=== PATIENT | male | born 1955 | race Caucasian/White ===

== ENCOUNTER 2017-05-26 09:40 | Inpatient (IN) | payer MEDICARE, MEDICAID ==
[2017-05-22 13:08] LABS: BASOPHILS % (AUTO) 0.5 % (0-1); EOSINOPHILS # (AUTO) 0.2 X10'3 (0-0.9); EOSINOPHILS % (AUTO) 1.9 % (0-6); HEMATOCRIT 37.7 % (42.0-52.0); HEMOGLOBIN 13.1 g/dl (14.0-17.9); LYMPHOCYTES # (AUTO) 2.9 X10'3 (1.1-4.8); LYMPHOCYTES % (AUTO) 35.1 % (21-51); MEAN CORPUSCULAR HEMOGLOBIN 30.9 PG (27.0-31.0); MEAN CORPUSCULAR HGB CONC 34.7 % (33.0-36.5); MEAN CORPUSCULAR VOLUME 89.1 FL (78-98); MEAN PLATELET VOLUME 7.8 FL (7.4-10.4); MONOCYTES # (AUTO) 0.7 X10'3 (0-0.9); NEUTROPHILS # (AUTO) 4.5 X10'3 (1.8-7.7); NEUTROPHILS % (AUTO) 54.5 % (42-75); PLATELET COUNT 311 X10'3 (140-440); RED BLOOD COUNT 4.23 X10'6 (4.70-6.10); WHITE BLOOD COUNT 8.2 X10'3 (4.5-11.0)
[2017-05-22 13:19] LABS: PARTIAL THROMBOPLASTIN TIME 27 SECONDS (22-32); PROTHROMBIN TIME 10.2 SECONDS (9.0-12.0)
[2017-05-22 13:31] LABS: ALANINE AMINOTRANSFERASE 19 U/L (12-78); ALBUMIN 3.5 G/DL (3.4-5.0); ALBUMIN/GLOBULIN RATIO 0.9 (1.1-1.5); ALKALINE PHOSPHATASE 109 IU/L (46-116); ANION GAP 7 (8-16); ASPARTATE AMINO TRANSFERASE 15 U/L (10-37); BILIRUBIN,TOTAL 0.4 MG/DL (0.1-1.0); BLOOD UREA NITROGEN 11 MG/DL (7-18); CHLORIDE 106 MMOL/L (99-107); GLUCOSE 93 MG/DL (70-104); POTASSIUM 4.3 MMOL/L (3.5-5.1); SODIUM 141 MMOL/L (135-145); TOTAL CARBON DIOXIDE 27.6 MMOL/L (24-32); TOTAL PROTEIN 7.4 G/DL (6.4-8.2); eGFR 68 ML/MIN
[~2017-05-26] VITALS: Ht 177.8 cm; Wt 69.8 kg
[2017-05-26] VITALS (18 sets, daily range): BP systolic 136–192; BP diastolic 64–78
[~2017-05-26 09:40] MED LIST: LIDOcaine 1% (10mg/ml) 5ml syringe ONE; albumin (human) 25% 100 ML IV solution IV ONE; calcium chloride 100 MG/1 ML inj IV ONE; heparin 10,000 units/1 ML INJ ONE; magnesium sulf 1 GM/2 ML ONE; methylPREDNISolone sod. succ. 500mg inj ONE; phenylephrine 10mg/ml inj IV ONE; sodium bicarbonate (8.4%) 1 mEq/ml syringe ONE
[2017-05-26] MEDS ORDERED: LORazepam 0.5 MG tablet PO PRN (10:10)
[2017-05-26] MEDS ORDERED: normal saline 1000ml 1,000 ML IV SCH (10:10)
[2017-05-26] MEDS ORDERED: nitroGLYCERIN 0.4mg SUBLingual tab SL PRN (10:10)
[2017-05-26] MEDS ORDERED: diphenhydrAMINE 25mg capsule PO PRN (10:10)
[2017-05-26] MEDS ORDERED: ASPI-611 PO (10:28)
[2017-05-26] MEDS ORDERED: ATOR80TA PO (10:29)
[2017-05-26] MEDS ORDERED: LISI10TA4 PO (10:29)
[2017-05-26] MEDS ORDERED: FA/M1TAB PO (10:30)
[2017-05-26] MEDS ORDERED: FAMO20TA8 PO (10:31)
[2017-05-26] MEDS ORDERED: BUDE10.2 INH (10:33)
[2017-05-26] MEDS ORDERED: ALBU8.5H8 IH (10:34)
[2017-05-26] MEDS ORDERED: fentaNYL/PF 50MCG/1 ML 2ML syringe ONE (11:52)
[2017-05-26] MEDS ORDERED: iohexol 350 MG/ML 50ML vial IV ONE (11:52)
[2017-05-26] MEDS ORDERED: midazolam 2 mg/2 ml injection ONE (11:52)
[2017-05-26] MEDS ORDERED: iohexol 350MG/ML 100ml bottle IV ONE (11:52)
[2017-05-26] MEDS ORDERED: LIDOcaine 1%/PF (10mg/ml) 5ml vial ONE (11:54)
[2017-05-26] MEDS ORDERED: heparin 1,000unit/ml 10ml vial 10 ML ONE (12:41)
[2017-05-26] MEDS ORDERED: OXAZEpam 15mg capsule PO PRN (13:55)
[2017-05-26] MEDS ORDERED: ondansetron/PF 4mg/2ml inj IV PRN (13:55)
[2017-05-26] MEDS ORDERED: proCHLORperazine 10 MG/2 ml inj IV PRN (13:55)
[2017-05-26] MEDS ORDERED: HYDROcodone/acetaminophen 10/325mg tab PO PRN ×3 (14:00→14:35)
[2017-05-26] MEDS ORDERED: HYDROcodone/acetaminophen 5mg/325mg tablet PO PRN (14:00)
[2017-05-26] MEDS ORDERED: albuterol 2.5 MG/3 ML nebule NEB PRN (14:05)
[2017-05-26] MEDS: sodium chloride 0.45% 1,000 ML IV SCH (14:16)
[2017-05-26] MEDS ORDERED: heparin 10,000 units/1 ML INJ IV PRN (14:20)
[2017-05-26] MEDS ORDERED: heparin 10,000 units/1 ML INJ IV ONE (14:20)
[2017-05-26] MEDS ORDERED: nitroGLYCERIN-Tridil 50MG/D5W 250 ML IV SCH (14:35)
[2017-05-26] MEDS ORDERED: magnesium hydroxide 30ml (MOM) UD suspension PO PRN (14:35)
[2017-05-26] MEDS ORDERED: acetaminophen 325mg tablet PO PRN (14:35)
[2017-05-26] MEDS ORDERED: morphine 10mg/ml inj. IV PRN (14:35)
[2017-05-26] MEDS ORDERED: cyclobenzaprine 10mg tablet PO PRN (14:35)
[2017-05-26] MEDS ORDERED: morphine 2 MG/ML inj. syringe IV PRN (14:35)
[2017-05-26] MEDS ORDERED: morphine 5 MG/ML injection IV PRN ×2 (14:37)
[2017-05-26 14:46] LABS: CHOL/HDL RATIO 2.4 (0.00-4.99); CHOLESTEROL 114 MG/DL (0-200); HDL CHOLESTEROL 47 MG/DL (35-60); LDL CHOLESTEROL 60 MG/DL (50-100); TRIGLYCERIDES 20 MG/DL (20-135); TROPONIN I < 0.04 NG/ML (0.0-0.05)
[2017-05-26] MEDS ORDERED: cefazolin/dext.iso 2gm/50ml 50 ML IV ONE (16:50)
[2017-05-26] MEDS ORDERED: dextrose 50%-water 50ml dispensing syringe IV PRN (16:50)
[2017-05-26] MEDS ORDERED: insulin regular, human inj. 100 UNITS in normal saline 100ml IV soln 100 ML IV SCH ×2 (16:50)
[2017-05-26] MEDS ORDERED: vancomycin/NS 1 GM ADD-VANTAGE 250 ML IV ONE (16:50)
[2017-05-26] MEDS ORDERED: MESSAGE TO NURSING PO ONE ×4 (16:50)
[2017-05-26 16:55] LABS: ABG BASE EXCESS -0.1 mmol/L (-2.0-3.0); ABG HCO3 23.9 mmol/L (22.0-26.0); ABG OXYGEN SATURATION 95.7 % (95-98); ABG PH (T) 7.437 (7.350-7.450); ABG PO2 (T) 76.2 mmHg (83-108); FCOHb 0.3 % (0.5-1.5); FO2Hb 95.4 % (94-100); PATIENT TEMPERATURE 36.4; TOTAL HEMOGLOBIN 13.1 G/dl (14.0-18.0)
[2017-05-26] MEDS ORDERED: insulin Lispro (HumaLOG) vial - multi-dose SQ SCH (18:00)
[2017-05-26 18:02] LABS: HEMATOCRIT 35.7 % (42.0-52.0); HEMOGLOBIN 12.3 g/dl (14.0-17.9); MEAN CORPUSCULAR HEMOGLOBIN 30.7 PG (27.0-31.0); MEAN CORPUSCULAR HGB CONC 34.4 % (33.0-36.5); MEAN CORPUSCULAR VOLUME 89.2 FL (78-98); MEAN PLATELET VOLUME 7.8 FL (7.4-10.4); PLATELET COUNT 284 X10'3 (140-440); RED BLOOD COUNT 4.01 X10'6 (4.70-6.10); RED CELL DISTRIBUTION WIDTH 13.8 % (11.5-14.5); WHITE BLOOD COUNT 7.6 X10'3 (4.5-11.0)
[2017-05-26 18:12] LABS: ALBUMIN 3.2 G/DL (3.4-5.0); ANION GAP 5 (8-16); BLOOD UREA NITROGEN 11 MG/DL (7-18); CALCIUM 8.5 MG/DL (8.5-10.1); CHLORIDE 106 MMOL/L (99-107); GLUCOSE 92 MG/DL (70-104); POTASSIUM 4.2 MMOL/L (3.5-5.1); SODIUM 138 MMOL/L (135-145); TOTAL CARBON DIOXIDE 27.1 MMOL/L (24-32); eGFR 68 ML/MIN
[2017-05-26 18:14] LABS: HEMOGLOBIN A1C 5.9 % (4.5-6.2)
[2017-05-26 19:45] LABS: TROPONIN I < 0.04 NG/ML (0.0-0.05)
[2017-05-26 19:53] LABS: INR 1.1 INR; PROTHROMBIN TIME 11.1 SECONDS (9.0-12.0)
[2017-05-26] MEDS ORDERED: ringers solution, lacted 1,000 ML IV ONE (19:58)
[2017-05-26] MEDS ORDERED: atorvastatin 20mg tablet PO SCH (21:00)
[2017-05-26] MEDS: famotidine 20mg tablet PO SCH (21:08)
[2017-05-26] MEDS: docusate sod 100mg capsule PO SCH (21:08)
[2017-05-26 21:59] LABS: CLARITY,URINE CLEAR (Clear); COLOR,URINE YELLOW (Yellow); GLUCOSE, URINE NEGATIVE (Neg); KETONES,URINE NEGATIVE (Neg); LEUKOCYTE ESTERASE ,URINE NEGATIVE (Neg); NITRITES, URINE NEGATIVE (Neg); OCCULT BLOOD,URINE NEGATIVE (Neg); PH,URINE 6.5 (4.8-8.0); PROTEIN,URINE NEGATIVE (Neg); UROBILINOGEN,URINE 0.2 E.U/dL (0.2-1.0)
[2017-05-26 22:03] LABS: UA COLLECTION TYPE NON-SPECIFIED
[2017-05-27] VITALS (26 sets, daily range): BP systolic 90–163; BP diastolic 36–69
[2017-05-27] MEDS: sodium chloride 0.45% 1,000 ML IV SCH (03:15)
[2017-05-27 04:04] LABS: BASOPHILS % (AUTO) 0.4 % (0-1); EOSINOPHILS # (AUTO) 0.2 X10'3 (0-0.9); EOSINOPHILS % (AUTO) 2.2 % (0-6); HEMATOCRIT 35.5 % (42.0-52.0); HEMOGLOBIN 12.2 g/dl (14.0-17.9); LYMPHOCYTES # (AUTO) 2.8 X10'3 (1.1-4.8); LYMPHOCYTES % (AUTO) 25.8 % (21-51); MEAN CORPUSCULAR HEMOGLOBIN 30.8 PG (27.0-31.0); MEAN CORPUSCULAR HGB CONC 34.3 % (33.0-36.5); MEAN CORPUSCULAR VOLUME 89.9 FL (78-98); MEAN PLATELET VOLUME 8.2 FL (7.4-10.4); MONOCYTES # (AUTO) 0.6 X10'3 (0-0.9); MONOCYTES % (AUTO) 5.5 % (2-12); NEUTROPHILS # (AUTO) 7.2 X10'3 (1.8-7.7); NEUTROPHILS % (AUTO) 66.1 % (42-75); PLATELET COUNT 275 X10'3 (140-440); RED BLOOD COUNT 3.96 X10'6 (4.70-6.10); RED CELL DISTRIBUTION WIDTH 13.8 % (11.5-14.5); WHITE BLOOD COUNT 10.9 X10'3 (4.5-11.0)
[2017-05-27 05:00] LABS: ALANINE AMINOTRANSFERASE 20 U/L (12-78); ALBUMIN 3.1 G/DL (3.4-5.0); ALBUMIN/GLOBULIN RATIO 0.9 (1.1-1.5); ALKALINE PHOSPHATASE 103 IU/L (46-116); ANION GAP 8 (8-16); ASPARTATE AMINO TRANSFERASE 17 U/L (10-37); BILIRUBIN,TOTAL 0.4 MG/DL (0.1-1.0); BLOOD UREA NITROGEN 15 MG/DL (7-18); BUN/CREATININE RATIO 13.6 (5.4-32.0); CALCIUM 8.8 MG/DL (8.5-10.1); CHLORIDE 106 MMOL/L (99-107); GLUCOSE 108 MG/DL (70-104); POTASSIUM 4.1 MMOL/L (3.5-5.1); SODIUM 139 MMOL/L (135-145); TOTAL CARBON DIOXIDE 25.5 MMOL/L (24-32); TOTAL PROTEIN 6.5 G/DL (6.4-8.2); eGFR 68 ML/MIN
[2017-05-27] MEDS ORDERED: vancomycin/NS 1 GM ADD-VANTAGE 250 ML IV ONE (05:00)
[2017-05-27] MEDS ORDERED: cefazolin/dext.iso 2gm/50ml 50 ML IV ONE (05:00)
[2017-05-27] MEDS ORDERED: LORazepam 2 mg/ml vial IV ONE (06:00)
[2017-05-27] MEDS ORDERED: famotidine 20mg tablet PO ONE (06:00)
[2017-05-27] MEDS ORDERED: papaverine 30 mg/ml 2ml inj. ONE (06:00)
[2017-05-27] MEDS ORDERED: heparin 10,000 units/1 ML INJ ONE (06:00)
[2017-05-27] MEDS ORDERED: potassium Cl 2 mEq/ml inj IV ONE (06:00)
[2017-05-27] MEDS ORDERED: LORazepam 2 mg/ml vial ONE (06:10)
[2017-05-27] MEDS: mupirocin 2% ointment 22GM NS SCH ×3 (06:51→20:04)
[2017-05-27] MEDS: insulin regular, human inj. 100 UNITS in normal saline 100ml IV soln 100 ML IV SCH ×20 (06:53→23:09)
[2017-05-27] MEDS: multivitamins, therapeutics tablet PO SCH (08:00)
[2017-05-27] MEDS ORDERED: nitroGLYCERIN in D5W 50mg/250ml (Tridil) infusion IV ONE (08:00)
[2017-05-27] MEDS: fluticasone/vilanterol 200mcg/25mcg inhaler IH SCH (08:00)
[2017-05-27] MEDS ORDERED: isoflurane 100ml inhalation liquid IH ONE (08:00)
[2017-05-27] MEDS ORDERED: protamine sulf. 10mg/ml inj. IV ONE (08:00)
[2017-05-27] MEDS: docusate sod 100mg capsule PO SCH ×2 (08:00→20:05)
[2017-05-27] MEDS ORDERED: lisinopril 10 MG tablet PO SCH (08:00)
[2017-05-27] MEDS: famotidine 20mg tablet PO SCH (08:00)
[2017-05-27] MEDS ORDERED: SUFENTANIL CITRATE 50 MCG/ML 2ml ampule IV ONE (08:19)
[2017-05-27] MEDS ORDERED: aspirin 81mg tab.chew PO SCH (08:30)
[2017-05-27] MEDS ORDERED: rocuronium 10mg/ml inj IV ONE ×2 (08:39→08:40)
[2017-05-27] MEDS ORDERED: LIDOcaine 2% (20mg/ml) 5ml vial ONE (08:40)
[2017-05-27] MEDS ORDERED: propofol inj 20 ML IV ONE (08:40)
[2017-05-27 08:56] LABS: ABG BASE EXCESS -0.5 mmol/L (-2.0-3.0); ABG HCO3 22.6 mmol/L (22.0-26.0); ABG OXYGEN SATURATION 99.4 % (95-98); ABG PCO2 32.1 mmHg (35.0-45.0); ABG PH 7.465 (7.350-7.450); ABG PO2 538.2 mmHg (60.0-100.0); CL (ABG) 108 mmol/L (99-107); FCOHb 0.3 % (0.5-1.5); FMetHb 0.5 % (0.3-1.12); FO2Hb 98.6 % (94-100); GLUCOSE (ABG) 94 mg/dl (70-105); IONIZED CA (ABG) 1.15 mmol/L (1.03-1.32); K (ABG) 4.2 mmol/L (3.3-5.1); NA (ABG) 137 mmol/L (135-145); TOTAL HEMOGLOBIN 11.8 G/dl (14.0-18.0)
[2017-05-27] MEDS ORDERED: insulin Lispro (HumaLOG) vial - multi-dose SQ SCH (09:00)
[2017-05-27] MEDS ORDERED: esmolol inj. 10 ML IV ONE (09:07)
[2017-05-27] MEDS ORDERED: heparin 10,000 units/1 ML INJ IJ ONE (09:09)
[2017-05-27] MEDS ORDERED: papaverine 30 mg/ml 2ml inj. IA ONE (09:09)
[2017-05-27] MEDS ORDERED: MESSAGE TO NURSING PO ONE (10:00)
[2017-05-27 10:05] LABS: ABG BASE EXCESS 0.2 mmol/L (-2.0-3.0); ABG HCO3 23.4 mmol/L (22.0-26.0); ABG OXYGEN SATURATION 99.4 % (95-98); ABG PCO2 32.1 mmHg (35.0-45.0); ABG PH 7.481 (7.350-7.450); ABG PO2 437.2 mmHg (60.0-100.0); CL (ABG) 104 mmol/L (99-107); FCOHb 0.3 % (0.5-1.5); FMetHb 0.1 % (0.3-1.12); GLUCOSE (ABG) 117 mg/dl (70-105); IONIZED CA (ABG) 0.97 mmol/L (1.03-1.32); K (ABG) 5.6 mmol/L (3.3-5.1); NA (ABG) 133 mmol/L (135-145); TOTAL HEMOGLOBIN 8.2 G/dl (14.0-18.0)
[2017-05-27 10:25] LABS: ABG PCO2 VENOUS 42.3 mmHg; ABG PO2 VENOUS 45.1 mmHg; CL (ABG) 103 mmol/L (99-107); FCOHb VENOUS 0.4 %; FHHb VENOUS 17.7 %; FMetHb VENOUS 0.2 %; FO2Hb VENOUS 81.7 %; GLUCOSE (ABG) 120 mg/dl (70-105); K (ABG) 5.8 mmol/L (3.3-5.1); NA (ABG) 134 mmol/L (135-145); TOTAL HEMOGLOBIN 8.4 G/dl (14.0-18.0)
[2017-05-27 10:46] LABS: ABG BASE EXCESS 1.6 mmol/L (-2.0-3.0); ABG HCO3 25.5 mmol/L (22.0-26.0); ABG OXYGEN SATURATION 99.6 % (95-98); ABG PCO2 36.5 mmHg (35.0-45.0); ABG PH 7.462 (7.350-7.450); ABG PO2 523.2 mmHg (60.0-100.0); CL (ABG) 107 mmol/L (99-107); FCOHb 0.8 % (0.5-1.5); FMetHb 0.4 % (0.3-1.12); FO2Hb 98.4 % (94-100); GLUCOSE (ABG) 126 mg/dl (70-105); IONIZED CA (ABG) 2.63 mmol/L (1.03-1.32); K (ABG) 5.8 mmol/L (3.3-5.1); NA (ABG) 133 mmol/L (135-145); TOTAL HEMOGLOBIN 7.4 G/dl (14.0-18.0)
[2017-05-27 11:15] LABS: ABG BASE EXCESS 1.3 mmol/L (-2.0-3.0); ABG HCO3 25.7 mmol/L (22.0-26.0); ABG OXYGEN SATURATION 98.4 % (95-98); ABG PCO2 39.5 mmHg (35.0-45.0); ABG PH 7.431 (7.350-7.450); ABG PO2 218.2 mmHg (60.0-100.0); CL (ABG) 105 mmol/L (99-107); FCOHb 0.3 % (0.5-1.5); FMetHb 0.9 % (0.3-1.12); FO2Hb 97.2 % (94-100); GLUCOSE (ABG) 139 mg/dl (70-105); IONIZED CA (ABG) 1.22 mmol/L (1.03-1.32); K (ABG) 5.4 mmol/L (3.3-5.1); NA (ABG) 136 mmol/L (135-145); TOTAL HEMOGLOBIN 8.6 G/dl (14.0-18.0)
[2017-05-27] MEDS ORDERED: morphine 10mg/ml inj. ONE (11:19)
[2017-05-27] MEDS ORDERED: sodium chloride 0.45% 1,000 ML IV SCH (11:38)
[2017-05-27] MEDS ORDERED: DOPamine 400mg/D5W 250ml 250 ML IV PRN (11:38)
[2017-05-27] MEDS ORDERED: nitroGLYCERIN-Tridil 50MG/D5W 250 ML IV PRN (11:38)
[2017-05-27] MEDS ORDERED: magnesium hydroxide 30ml (MOM) UD suspension PO PRN (11:40)
[2017-05-27] MEDS ORDERED: metoclopramide 5 mg/ml inj IV PRN (11:40)
[2017-05-27] MEDS ORDERED: sodium phosphate inj. 15 MMOL in dextrose 5%-water 150 ML IV PRN (11:40)
[2017-05-27] MEDS ORDERED: morphine 5 MG/ML injection IV PRN ×2 (11:40)
[2017-05-27] MEDS ORDERED: acetaminophen 325mg tablet PO PRN (11:40)
[2017-05-27] MEDS ORDERED: dextrose 50%-water 50ml dispensing syringe IV PRN (11:40)
[2017-05-27] MEDS ORDERED: sodium phosphate inj. 30 MMOL in dextrose 5%-water 250 ML IV PRN (11:40)
[2017-05-27] MEDS ORDERED: potassium Cl 20mEq/100mL bag 100 ML IV PRN ×3 (11:40)
[2017-05-27] MEDS ORDERED: magnesium 4gm in 100ml NS 100 ML IV PRN (11:40)
[2017-05-27] MEDS ORDERED: insulin regular, human inj. 100 UNITS in normal saline 100ml IV soln 100 ML IV SCH ×2 (11:40)
[2017-05-27] MEDS ORDERED: Neutra Phos packet PO PRN (11:40)
[2017-05-27] MEDS ORDERED: albumin (Human) 5% 250ml 250 ML IV PRN (11:40)
[2017-05-27] MEDS ORDERED: normal saline 250ml IV soln 250 ML IV PRN (11:40)
[2017-05-27 12:07] LABS: BASOPHILS % (AUTO) 0.1 % (0-1); EOSINOPHILS # (AUTO) 0.3 X10'3 (0-0.9); EOSINOPHILS % (AUTO) 1.5 % (0-6); HEMATOCRIT 27.6 % (42.0-52.0); HEMOGLOBIN 9.8 g/dl (14.0-17.9); LYMPHOCYTES % (AUTO) 10.7 % (21-51); MEAN CORPUSCULAR HGB CONC 35.4 % (33.0-36.5); MEAN CORPUSCULAR VOLUME 87.6 FL (78-98); MEAN PLATELET VOLUME 7.7 FL (7.4-10.4); MONOCYTES # (AUTO) 0.5 X10'3 (0-0.9); MONOCYTES % (AUTO) 2.7 % (2-12); NEUTROPHILS # (AUTO) 16.2 X10'3 (1.8-7.7); PLATELET COUNT 169 X10'3 (140-440); RED BLOOD COUNT 3.15 X10'6 (4.70-6.10); RED CELL DISTRIBUTION WIDTH 13.7 % (11.5-14.5); WHITE BLOOD COUNT 19.1 X10'3 (4.5-11.0)
[2017-05-27 12:11] LABS: ABG BASE EXCESS -0.2 mmol/L (-2.0-3.0); ABG OXYGEN SATURATION 98.4 % (95-98); ABG PCO2 (T) 35.4 mmHg (35.0-48.0); ABG PH (T) 7.444 (7.350-7.450); ABG PO2 (T) 195.8 mmHg (83-108); FCOHb 0.2 % (0.5-1.5); FMetHb 0.3 % (0.3-1.12); FO2Hb 97.9 % (94-100); PATIENT TEMPERATURE 35.6; PEEP 5 cm H2O; RESPIRATORY RATE 12 b/min; TIDAL VOLUME 600 mL; TOTAL HEMOGLOBIN 10.5 G/dl (14.0-18.0)
[2017-05-27 12:18] LABS: INR 1.2 INR; PARTIAL THROMBOPLASTIN TIME 29 SECONDS (22-32); PROTHROMBIN TIME 12.6 SECONDS (9.0-12.0)
[2017-05-27 12:22] LABS: ALANINE AMINOTRANSFERASE 9 U/L (12-78); ALBUMIN 2.9 G/DL (3.4-5.0); ALBUMIN/GLOBULIN RATIO 1.5 (1.1-1.5); ALKALINE PHOSPHATASE 61 IU/L (46-116); ANION GAP 6 (8-16); ASPARTATE AMINO TRANSFERASE 20 U/L (10-37); BILIRUBIN,TOTAL 0.5 MG/DL (0.1-1.0); BLOOD UREA NITROGEN 12 MG/DL (7-18); BUN/CREATININE RATIO 13.3 (5.4-32.0); CALCIUM 8.3 MG/DL (8.5-10.1); CHLORIDE 109 MMOL/L (99-107); GLUCOSE 155 MG/DL (70-104); MAGNESIUM 3.8 MG/DL (1.5-2.4); PHOSPHORUS 1.9 MG/DL (2.3-4.5); SODIUM 141 MMOL/L (135-145); TOTAL CARBON DIOXIDE 25.8 MMOL/L (24-32); TOTAL PROTEIN 4.9 G/DL (6.4-8.2); eGFR 85 ML/MIN
[2017-05-27 12:35] LABS: ACTIVATED CLOTTING TIME 139 SEC (101-148)
[2017-05-27 12:35] LABS: ACT @ 1.70 U 313 SEC (193-297); ACT @ 2.84 U 467 SEC (260-420); BASELINE ACT 142 SEC (101-148); PATIENT WEIGHT 69.0k KG
[2017-05-27] MEDS: niCARDipine/sod cl 20mg/200ml 200 ML IV PRN ×2 (12:45→20:06)
[2017-05-27] MEDS: insulin Lispro (HumaLOG) vial - multi-dose SQ SCH ×2 (13:00→18:00)
[2017-05-27] MEDS: ketorolac tromethamine 15mg/ml inj. IV SCH ×2 (14:09→20:05)
[2017-05-27 15:51] LABS: ABG BASE EXCESS -2.1 mmol/L (-2.0-3.0); ABG HCO3 22.4 mmol/L (22.0-26.0); ABG OXYGEN SATURATION 96.7 % (95-98); ABG PCO2 (T) 36.3 mmHg (35.0-48.0); ABG PH (T) 7.405 (7.350-7.450); ABG PO2 (T) 92.5 mmHg (83-108); FCOHb 0.3 % (0.5-1.5); FMetHb 0.3 % (0.3-1.12); FO2Hb 96.1 % (94-100); MINUTE VOLUME 13 L/min; PATIENT TEMPERATURE 36.3; PEEP 5 cm H2O; RESPIRATORY RATE (OBSERVED) 22 b/min; TOTAL HEMOGLOBIN 11.8 G/dl (14.0-18.0)
[2017-05-27] MEDS: cefazolin 1gm/NS 100mL 100 ML IV SCH (16:13)
[2017-05-27 17:58] LABS: BASOPHILS % (AUTO) 0 % (0-1); EOSINOPHILS # (AUTO) 0.4 X10'3 (0-0.9); EOSINOPHILS % (AUTO) 2.1 % (0-6); HEMATOCRIT 33.2 % (42.0-52.0); HEMOGLOBIN 11.3 g/dl (14.0-17.9); LYMPHOCYTES # (AUTO) 0.9 X10'3 (1.1-4.8); LYMPHOCYTES % (AUTO) 4.7 % (21-51); MEAN CORPUSCULAR HEMOGLOBIN 30.6 PG (27.0-31.0); MEAN CORPUSCULAR HGB CONC 34.1 % (33.0-36.5); MEAN CORPUSCULAR VOLUME 89.6 FL (78-98); MONOCYTES # (AUTO) 0.5 X10'3 (0-0.9); MONOCYTES % (AUTO) 2.8 % (2-12); NEUTROPHILS # (AUTO) 16.4 X10'3 (1.8-7.7); NEUTROPHILS % (AUTO) 90.4 % (42-75); PLATELET COUNT 180 X10'3 (140-440); RED BLOOD COUNT 3.71 X10'6 (4.70-6.10); RED CELL DISTRIBUTION WIDTH 13.6 % (11.5-14.5); WHITE BLOOD COUNT 18.2 X10'3 (4.5-11.0)
[2017-05-27 18:08] LABS: ALBUMIN 3.4 G/DL (3.4-5.0); ANION GAP 7 (8-16); BLOOD UREA NITROGEN 14 MG/DL (7-18); BUN/CREATININE RATIO 12.7 (5.4-32.0); CALCIUM 8.3 MG/DL (8.5-10.1); CHLORIDE 109 MMOL/L (99-107); GLUCOSE 146 MG/DL (70-104); SODIUM 142 MMOL/L (135-145); TOTAL CARBON DIOXIDE 25.8 MMOL/L (24-32); eGFR 68 ML/MIN
[2017-05-27 18:12] LABS: POTASSIUM 4.6 MMOL/L (3.5-5.1)
[2017-05-27 18:58] LABS: MAGNESIUM 2.7 MG/DL (1.5-2.4); PHOSPHORUS 1.5 MG/DL (2.3-4.5)
[2017-05-27] MEDS: vancomycin/NS 1 GM ADD-VANTAGE 250 ML IV SCH (20:04)
[2017-05-28] VITALS (24 sets, daily range): BP systolic 118–156; BP diastolic 50–74
[2017-05-28] MEDS: cefazolin 1gm/NS 100mL 100 ML IV SCH ×3 (00:09→16:09)
[2017-05-28] MEDS: insulin regular, human inj. 100 UNITS in normal saline 100ml IV soln 100 ML IV SCH ×4 (00:18→03:14)
[2017-05-28] MEDS: HYDROcodone/acetaminophen 10/325mg tab PO PRN ×4 (00:30→22:02)
[2017-05-28] MEDS: ketorolac tromethamine 15mg/ml inj. IV SCH ×2 (01:41→08:00)
[2017-05-28 03:51] LABS: INR 1.1 INR; PARTIAL THROMBOPLASTIN TIME 29 SECONDS (22-32)
[2017-05-28 03:54] LABS: ALANINE AMINOTRANSFERASE 15 U/L (12-78); ALBUMIN/GLOBULIN RATIO 1.3 (1.1-1.5); ALKALINE PHOSPHATASE 62 IU/L (46-116); ANION GAP 8 (8-16); ASPARTATE AMINO TRANSFERASE 76 U/L (10-37); BILIRUBIN,TOTAL 0.4 MG/DL (0.1-1.0); BLOOD UREA NITROGEN 17 MG/DL (7-18); CALCIUM 8.1 MG/DL (8.5-10.1); CHLORIDE 108 MMOL/L (99-107); GLUCOSE 136 MG/DL (70-104); MAGNESIUM 2.2 MG/DL (1.5-2.4); PHOSPHORUS 4.1 MG/DL (2.3-4.5); POTASSIUM 4.5 MMOL/L (3.5-5.1); SODIUM 141 MMOL/L (135-145); TOTAL PROTEIN 5.4 G/DL (6.4-8.2); eGFR 75 ML/MIN
[2017-05-28 04:09] LABS: BASOPHILS % (AUTO) 0 % (0-1); EOSINOPHILS # (AUTO) 0.3 X10'3 (0-0.9); EOSINOPHILS % (AUTO) 1.4 % (0-6); HEMATOCRIT 28.4 % (42.0-52.0); HEMOGLOBIN 9.6 g/dl (14.0-17.9); LYMPHOCYTES # (AUTO) 1.3 X10'3 (1.1-4.8); LYMPHOCYTES % (AUTO) 5.7 % (21-51); MEAN CORPUSCULAR HEMOGLOBIN 30.7 PG (27.0-31.0); MEAN CORPUSCULAR HGB CONC 33.7 % (33.0-36.5); MEAN CORPUSCULAR VOLUME 91.1 FL (78-98); MEAN PLATELET VOLUME 8.8 FL (7.4-10.4); MONOCYTES # (AUTO) 0.9 X10'3 (0-0.9); MONOCYTES % (AUTO) 4.1 % (2-12); NEUTROPHILS # (AUTO) 20.5 X10'3 (1.8-7.7); NEUTROPHILS % (AUTO) 88.8 % (42-75); PLATELET COUNT 152 X10'3 (140-440); RED BLOOD COUNT 3.12 X10'6 (4.70-6.10); RED CELL DISTRIBUTION WIDTH 14.1 % (11.5-14.5); WHITE BLOOD COUNT 23.1 X10'3 (4.5-11.0)
[2017-05-28] MEDS: magnesium 2GM in 50ml NS 50 ML IV PRN (04:48)
[2017-05-28] MEDS: ondansetron/PF 4mg/2ml inj IV PRN (07:09)
[2017-05-28] MEDS: fluticasone/vilanterol 200mcg/25mcg inhaler IH SCH (07:58)
[2017-05-28] MEDS: insulin Lispro (HumaLOG) vial - multi-dose SQ SCH ×2 (09:00→13:00)
[2017-05-28] MEDS ORDERED: albuterol 2.5 MG/3 ML nebule NEB PRN (09:00)
[2017-05-28] MEDS: vancomycin/NS 1 GM ADD-VANTAGE 250 ML IV SCH ×2 (09:30→19:43)
[2017-05-28] MEDS: mupirocin 2% ointment 22GM NS SCH ×2 (09:31→19:43)
[2017-05-28] MEDS: aspirin 325mg tablet, delayed-release (Ecotrin) PO SCH (09:31)
[2017-05-28] MEDS: atorvastatin 10mg tablet PO SCH (09:31)
[2017-05-28] MEDS: metoprolol tartrate 12.5mg (1/2 tablet) PO SCH ×2 (09:31→19:44)
[2017-05-28] MEDS: multivitamins, therapeutics tablet PO SCH (09:31)
[2017-05-28] MEDS: pantoprazole 40mg Tablet.DR PO SCH (09:31)
[2017-05-28] MEDS: docusate sod 100mg capsule PO SCH ×2 (09:31→19:44)
[2017-05-28] MEDS: albuterol 2.5 MG/3 ML nebule NEB SCH ×4 (11:37→22:13)
[2017-05-28] MEDS ORDERED: dextrose ORAL solution 15 GM/59 ML bottle PO PRN ×2 (13:50)
[2017-05-28] MEDS ORDERED: insulin Lispro (HumaLOG) vial - multi-dose SQ SCH (13:50)
[2017-05-28] MEDS ORDERED: dextrose 50%-water 50ml dispensing syringe IV PRN ×2 (13:50)
[2017-05-28] MEDS ORDERED: insulin glargine (Lantus) pen - multi-dose SQ SCH (21:00)
[2017-05-29] VITALS (18 sets, daily range): BP systolic 110–136; BP diastolic 56–74
[2017-05-29] MEDS: cefazolin 1gm/NS 100mL 100 ML IV SCH (00:23)
[2017-05-29] MEDS: albuterol 2.5 MG/3 ML nebule NEB SCH ×6 (02:35→23:20)
[2017-05-29 03:36] LABS: BASOPHILS % (AUTO) 0 % (0-1); EOSINOPHILS # (AUTO) 0.3 X10'3 (0-0.9); EOSINOPHILS % (AUTO) 1.3 % (0-6); HEMATOCRIT 26.9 % (42.0-52.0); HEMOGLOBIN 9.1 g/dl (14.0-17.9); LYMPHOCYTES # (AUTO) 1.3 X10'3 (1.1-4.8); LYMPHOCYTES % (AUTO) 4.9 % (21-51); MEAN CORPUSCULAR HEMOGLOBIN 30.6 PG (27.0-31.0); MEAN CORPUSCULAR HGB CONC 33.7 % (33.0-36.5); MEAN CORPUSCULAR VOLUME 90.8 FL (78-98); MEAN PLATELET VOLUME 8.7 FL (7.4-10.4); MONOCYTES # (AUTO) 1.2 X10'3 (0-0.9); MONOCYTES % (AUTO) 4.4 % (2-12); NEUTROPHILS # (AUTO) 23.2 X10'3 (1.8-7.7); NEUTROPHILS % (AUTO) 89.4 % (42-75); PLATELET COUNT 126 X10'3 (140-440); RED BLOOD COUNT 2.96 X10'6 (4.70-6.10)
[2017-05-29 04:04] LABS: ALBUMIN 2.8 G/DL (3.4-5.0); ANION GAP 6 (8-16); BLOOD UREA NITROGEN 18 MG/DL (7-18); CALCIUM 8.3 MG/DL (8.5-10.1); CHLORIDE 107 MMOL/L (99-107); GLUCOSE 133 MG/DL (70-104); MAGNESIUM 2.3 MG/DL (1.5-2.4); PHOSPHORUS 3.5 MG/DL (2.3-4.5); POTASSIUM 4.9 MMOL/L (3.5-5.1); SODIUM 139 MMOL/L (135-145); TOTAL CARBON DIOXIDE 25.7 MMOL/L (24-32); eGFR 75 ML/MIN
[2017-05-29] MEDS: magnesium 2GM in 50ml NS 50 ML IV PRN (04:31)
[2017-05-29] MEDS: HYDROcodone/acetaminophen 10/325mg tab PO PRN ×3 (04:34→19:36)
[2017-05-29 05:03] LABS: TOTAL CELLS COUNTED 100
[2017-05-29 05:12] LABS: PLATELET ESTIMATE DECREASED
[2017-05-29] MEDS ORDERED: magnesium 4gm in 100ml NS 100 ML IV PRN (07:25)
[2017-05-29] MEDS ORDERED: magnesium 2GM in 50ml NS 50 ML IV PRN (07:25)
[2017-05-29] MEDS: atorvastatin 10mg tablet PO SCH (07:25)
[2017-05-29] MEDS ORDERED: potassium Cl 40MEQ/NS 500ml 500 ML IV PRN ×2 (07:25)
[2017-05-29] MEDS: docusate sod 100mg capsule PO SCH ×2 (07:25→21:29)
[2017-05-29] MEDS ORDERED: magnesium Cl slow-release 64mg tablet PO PRN (07:25)
[2017-05-29] MEDS: aspirin 325mg tablet, delayed-release (Ecotrin) PO SCH (07:25)
[2017-05-29] MEDS: pantoprazole 40mg Tablet.DR PO SCH (07:25)
[2017-05-29] MEDS: magnesium Cl slow-release 64mg tablet PO SCH ×2 (07:25→20:00)
[2017-05-29] MEDS: metoprolol tartrate 12.5mg (1/2 tablet) PO SCH ×2 (07:25→21:28)
[2017-05-29] MEDS: multivitamins, therapeutics tablet PO SCH (07:25)
[2017-05-29] MEDS ORDERED: potassium Cl 20 mEq SR tablet PO PRN ×2 (07:25)
[2017-05-29] MEDS: potassium Cl 20 mEq SR tablet PO SCH ×2 (07:26→21:28)
[2017-05-29] MEDS: fluticasone/vilanterol 200mcg/25mcg inhaler IH SCH (07:48)
[2017-05-29] MEDS: K and/or MAG REPLACEMENT MC SCH (08:00)
[2017-05-29] MEDS: mupirocin 2% ointment 22GM NS SCH (08:03)
[2017-05-30 02:00] VITALS: BP 126/73
[2017-05-30] MEDS: albuterol 2.5 MG/3 ML nebule NEB SCH ×6 (02:24→23:00)
[2017-05-30] MEDS: HYDROcodone/acetaminophen 10/325mg tab PO PRN ×4 (02:59→22:29)
[2017-05-30 05:00] LABS: BASOPHILS % (AUTO) 0.2 % (0-1); EOSINOPHILS # (AUTO) 0.2 X10'3 (0-0.9); EOSINOPHILS % (AUTO) 1.4 % (0-6); HEMATOCRIT 29.4 % (42.0-52.0); HEMOGLOBIN 10.1 g/dl (14.0-17.9); LYMPHOCYTES # (AUTO) 2.4 X10'3 (1.1-4.8); LYMPHOCYTES % (AUTO) 15.8 % (21-51); MEAN CORPUSCULAR HEMOGLOBIN 30.7 PG (27.0-31.0); MEAN CORPUSCULAR HGB CONC 34.3 % (33.0-36.5); MEAN CORPUSCULAR VOLUME 89.4 FL (78-98); MEAN PLATELET VOLUME 8.3 FL (7.4-10.4); MONOCYTES % (AUTO) 6.6 % (2-12); NEUTROPHILS # (AUTO) 11.5 X10'3 (1.8-7.7); PLATELET COUNT 128 X10'3 (140-440); RED BLOOD COUNT 3.29 X10'6 (4.70-6.10); RED CELL DISTRIBUTION WIDTH 14.6 % (11.5-14.5); WHITE BLOOD COUNT 15.1 X10'3 (4.5-11.0)
[2017-05-30 05:07] LABS: ALBUMIN 2.7 G/DL (3.4-5.0); ANION GAP 9 (8-16); BLOOD UREA NITROGEN 16 MG/DL (7-18); CALCIUM 8.4 MG/DL (8.5-10.1); CHLORIDE 104 MMOL/L (99-107); GLUCOSE 106 MG/DL (70-104); MAGNESIUM 1.9 MG/DL (1.5-2.4); POTASSIUM 4.2 MMOL/L (3.5-5.1); SODIUM 140 MMOL/L (135-145); TOTAL CARBON DIOXIDE 27.1 MMOL/L (24-32); eGFR 75 ML/MIN
[2017-05-30 06:35] VITALS: BP 155/87
[2017-05-30] MEDS: fluticasone/vilanterol 200mcg/25mcg inhaler IH SCH (07:09)
[2017-05-30] MEDS: pantoprazole 40mg Tablet.DR PO SCH (07:30)
[2017-05-30] MEDS: K and/or MAG REPLACEMENT MC SCH (08:00)
[2017-05-30] MEDS: magnesium Cl slow-release 64mg tablet PO SCH ×2 (08:00→22:19)
[2017-05-30] MEDS: potassium Cl 20 mEq SR tablet PO SCH ×2 (08:00→20:00)
[2017-05-30] MEDS: metoprolol tartrate 12.5mg (1/2 tablet) PO SCH (08:55)
[2017-05-30] MEDS: aspirin 325mg tablet, delayed-release (Ecotrin) PO SCH (08:55)
[2017-05-30] MEDS: multivitamins, therapeutics tablet PO SCH (08:55)
[2017-05-30] MEDS: docusate sod 100mg capsule PO SCH ×2 (08:55→22:18)
[2017-05-30] MEDS: atorvastatin 10mg tablet PO SCH (08:55)
[2017-05-30] MEDS ORDERED: magnesium citrate 296ml oral solution PO ONE (10:15)
[2017-05-30 11:00] VITALS: BP 129/70
[2017-05-30 15:00] VITALS: BP 110/68
[2017-05-30] MEDS: LACTOSE-FREE FOOD 237ML (BOOST) PO SCH (17:30)
[2017-05-30 18:00] VITALS: BP 124/74
[2017-05-30 22:00] VITALS: BP 127/83
[2017-05-30] MEDS: metoprolol tartrate 25mg tablet PO SCH (22:19)
[2017-05-31 02:00] VITALS: BP 113/64
[2017-05-31] MEDS: albuterol 2.5 MG/3 ML nebule NEB SCH ×6 (04:37→23:22)
[2017-05-31 05:38] LABS: ALBUMIN 2.7 G/DL (3.4-5.0); ANION GAP 5 (8-16); BLOOD UREA NITROGEN 16 MG/DL (7-18); CALCIUM 8.9 MG/DL (8.5-10.1); CHLORIDE 104 MMOL/L (99-107); GLUCOSE 96 MG/DL (70-104); MAGNESIUM 2.3 MG/DL (1.5-2.4); POTASSIUM 4.9 MMOL/L (3.5-5.1); SODIUM 139 MMOL/L (135-145); TOTAL CARBON DIOXIDE 29.7 MMOL/L (24-32); eGFR 75 ML/MIN
[2017-05-31 05:43] LABS: BASOPHILS % (AUTO) 0.2 % (0-1); EOSINOPHILS # (AUTO) 0.2 X10'3 (0-0.9); EOSINOPHILS % (AUTO) 2.1 % (0-6); HEMOGLOBIN 10.9 g/dl (14.0-17.9); LYMPHOCYTES # (AUTO) 2.7 X10'3 (1.1-4.8); LYMPHOCYTES % (AUTO) 22.9 % (21-51); MEAN CORPUSCULAR HEMOGLOBIN 30.5 PG (27.0-31.0); MEAN CORPUSCULAR VOLUME 89.8 FL (78-98); MEAN PLATELET VOLUME 8.7 FL (7.4-10.4); MONOCYTES # (AUTO) 0.9 X10'3 (0-0.9); MONOCYTES % (AUTO) 7.7 % (2-12); NEUTROPHILS % (AUTO) 67.1 % (42-75); PLATELET COUNT 169 X10'3 (140-440); RED BLOOD COUNT 3.57 X10'6 (4.70-6.10); RED CELL DISTRIBUTION WIDTH 14.2 % (11.5-14.5); WHITE BLOOD COUNT 11.9 X10'3 (4.5-11.0)
[2017-05-31 06:35] VITALS: BP 114/90
[2017-05-31] MEDS: multivitamins, therapeutics tablet PO SCH (07:45)
[2017-05-31] MEDS: atorvastatin 10mg tablet PO SCH (07:45)
[2017-05-31] MEDS: pantoprazole 40mg Tablet.DR PO SCH (07:46)
[2017-05-31] MEDS: aspirin 325mg tablet, delayed-release (Ecotrin) PO SCH (07:46)
[2017-05-31] MEDS: HYDROcodone/acetaminophen 10/325mg tab PO PRN ×3 (07:46→20:25)
[2017-05-31] MEDS: docusate sod 100mg capsule PO SCH ×2 (07:47→20:00)
[2017-05-31] MEDS: metoprolol tartrate 25mg tablet PO SCH ×2 (07:51→20:26)
[2017-05-31] MEDS: K and/or MAG REPLACEMENT MC SCH (08:00)
[2017-05-31] MEDS: potassium Cl 20 mEq SR tablet PO SCH ×2 (08:00→20:00)
[2017-05-31] MEDS: magnesium Cl slow-release 64mg tablet PO SCH ×2 (08:00→20:00)
[2017-05-31] MEDS: fluticasone/vilanterol 200mcg/25mcg inhaler IH SCH (08:00)
[2017-05-31] MEDS: ondansetron/PF 4mg/2ml inj IV PRN ×2 (10:03→18:50)
[2017-05-31 11:00] VITALS: BP 110/65
[2017-05-31] MEDS: LACTOSE-FREE FOOD 237ML (BOOST) PO SCH ×2 (12:30→17:30)
[2017-05-31 15:00] VITALS: BP 112/73
[2017-05-31 19:00] VITALS: BP 125/73
[2017-05-31 23:00] VITALS: BP 94/61
[2017-06-01 03:00] VITALS: BP 107/62
[2017-06-01] MEDS: albuterol 2.5 MG/3 ML nebule NEB SCH ×3 (05:07→12:15)
[2017-06-01] MEDS: HYDROcodone/acetaminophen 10/325mg tab PO PRN ×2 (05:29→11:30)
[2017-06-01 07:15] VITALS: BP 113/64
[2017-06-01] MEDS: potassium Cl 20 mEq SR tablet PO SCH (08:00)
[2017-06-01] MEDS: magnesium Cl slow-release 64mg tablet PO SCH (08:00)
[2017-06-01] MEDS: K and/or MAG REPLACEMENT MC SCH (08:00)
[2017-06-01 08:16] LABS: ALBUMIN 2.8 G/DL (3.4-5.0); ANION GAP 7 (8-16); BLOOD UREA NITROGEN 19 MG/DL (7-18); BUN/CREATININE RATIO 15.8 (5.4-32.0); CALCIUM 8.6 MG/DL (8.5-10.1); CHLORIDE 101 MMOL/L (99-107); GLUCOSE 100 MG/DL (70-104); MAGNESIUM 2.4 MG/DL (1.5-2.4); POTASSIUM 4.5 MMOL/L (3.5-5.1); SODIUM 137 MMOL/L (135-145); TOTAL CARBON DIOXIDE 29.4 MMOL/L (24-32); eGFR 61 ML/MIN
[2017-06-01] MEDS: fluticasone/vilanterol 200mcg/25mcg inhaler IH SCH (08:26)
[2017-06-01 08:27] LABS: BASOPHILS % (AUTO) 0.2 % (0-1); EOSINOPHILS # (AUTO) 0.3 X10'3 (0-0.9); EOSINOPHILS % (AUTO) 2.5 % (0-6); HEMATOCRIT 31.1 % (42.0-52.0); HEMOGLOBIN 10.6 g/dl (14.0-17.9); LYMPHOCYTES # (AUTO) 2.9 X10'3 (1.1-4.8); MEAN CORPUSCULAR HEMOGLOBIN 30.8 PG (27.0-31.0); MEAN CORPUSCULAR HGB CONC 34.1 % (33.0-36.5); MEAN CORPUSCULAR VOLUME 90.3 FL (78-98); MEAN PLATELET VOLUME 8.4 FL (7.4-10.4); MONOCYTES # (AUTO) 0.8 X10'3 (0-0.9); MONOCYTES % (AUTO) 6.4 % (2-12); NEUTROPHILS # (AUTO) 8.9 X10'3 (1.8-7.7); NEUTROPHILS % (AUTO) 68.9 % (42-75); PLATELET COUNT 241 X10'3 (140-440); RED BLOOD COUNT 3.44 X10'6 (4.70-6.10); WHITE BLOOD COUNT 12.9 X10'3 (4.5-11.0)
[2017-06-01] MEDS: docusate sod 100mg capsule PO SCH (08:30)
[2017-06-01] MEDS: metoprolol tartrate 25mg tablet PO SCH (08:30)
[2017-06-01] MEDS: aspirin 325mg tablet, delayed-release (Ecotrin) PO SCH (08:30)
[2017-06-01] MEDS: atorvastatin 10mg tablet PO SCH (08:30)
[2017-06-01] MEDS: multivitamins, therapeutics tablet PO SCH (08:30)
[2017-06-01] MEDS: pantoprazole 40mg Tablet.DR PO SCH (08:31)
[2017-06-01 11:00] VITALS: BP 132/78
[2017-06-01] MEDS: LACTOSE-FREE FOOD 237ML (BOOST) PO SCH (13:13)
== END 2017-06-01 13:19 | DRG 234 ==
LOC: SSTAY O 09:40 → ICU 2S 13:15 → CICU 2S 05-27 11:06 → PCU 3S 05-29 14:00
PROVIDERS: ADMIT Internal Medicine Cardiovascular Disease; ATTEND Internal Medicine Pulmonary Disease
PROC: 4A023N7 Measurement of Cardiac Sampling and Pressure, Left Heart, Percutaneous Approach (ICD-10-PCS; 2017-05-26)
PROC: B2151ZZ Fluoroscopy of Left Heart using Low Osmolar Contrast (ICD-10-PCS; 2017-05-26)
PROC: B2111ZZ Fluoroscopy of Multiple Coronary Arteries using Low Osmolar Contrast (ICD-10-PCS; 2017-05-26)
PROC: B3121ZZ Fluoroscopy of Left Subclavian Artery using Low Osmolar Contrast (ICD-10-PCS; 2017-05-26)
PROC: B41F1ZZ Fluoroscopy of Right Lower Extremity Arteries using Low Osmolar Contrast (ICD-10-PCS; 2017-05-26)
PROC: 021109W Bypass Coronary Artery, Two Arteries from Aorta with Autologous Venous Tissue, Open Approach (ICD-10-PCS; 2017-05-27)
PROC: 06BP4ZZ Excision of Right Saphenous Vein, Percutaneous Endoscopic Approach (ICD-10-PCS; 2017-05-27)
PROC: 5A1221Z Performance of Cardiac Output, Continuous (ICD-10-PCS; 2017-05-27)
PROC: B24BZZ4 Ultrasonography of Heart with Aorta, Transesophageal (ICD-10-PCS; 2017-05-27)
PROC: 02HV33Z Insertion of Infusion Device into Superior Vena Cava, Percutaneous Approach (ICD-10-PCS; 2017-05-27)
PROC: 02HQ32Z Insertion of Monitoring Device into Right Pulmonary Artery, Percutaneous Approach (ICD-10-PCS; 2017-05-27)
PROC: 4A133B3 Monitoring of Arterial Pressure, Pulmonary, Percutaneous Approach (ICD-10-PCS; 2017-05-27)
PROC: 4A1239Z Monitoring of Cardiac Output, Percutaneous Approach (ICD-10-PCS; 2017-05-27)
PROC: 02100Z9 Bypass Coronary Artery, One Artery from Left Internal Mammary, Open Approach (ICD-10-PCS; principal; 2017-05-27 08:00)
DX: I25.110 Atherosclerotic heart disease of native coronary artery with unstable angina pectoris (principal); I73.9 Peripheral vascular disease, unspecified; J44.9 Chronic obstructive pulmonary disease, unspecified; E78.5 Hyperlipidemia, unspecified; I10 Essential (primary) hypertension; I25.2 Old myocardial infarction; Z79.82 Long term (current) use of aspirin; Z79.899 Other long term (current) drug therapy; Z87.891 Personal history of nicotine dependence
CPT/HCPCS: 0232T; 93312; 93325; 93458; 36415; 36600; 71045; 71046; 76700; 80048; 80053; 80061; 81003; 82330; 82435; 82800; 82803; 82947; 82948; 83036; 83735; 83880; 84100; 84132; 84295; 84484; 85018; 85025; 85027; 85347; 85384; 85610; 85730; 86885; 86900; 86901; 86920; 87070; 93005; 93880; 93970; 94002; 94010; 94640; 94668; 94760; 97110; 97116; 97162; 97530; 99152; 99153; A4620; A6213; A6255; A6257; A6258; A6402; A6449; A7000; A7048; C1751; C1769; J0690; J1644; J1815; J1885; J2001; J2060; J2150; J2250; J2270; J2370; J2405; J2440; J2704; J2720; J2930; J3010; J3370; J3475; J3480; J3490; J7030; J7060; J7120; P9047; Q0163; Q9967

== ENCOUNTER 2017-06-18 16:44 | Inpatient (IN) | payer MEDICARE, MEDICAID ==
[~2017-06-18] VITALS: Ht 177.8 cm; Wt 65.9 kg
[~2017-06-18 16:44] MED LIST changes: +ALBU8.5H8 IH; +ASPI-611 PO; +ATOR80TA PO; +BUDE10.2 INH; +FA/M1TAB PO; +FAMO20TA8 PO; -LIDOcaine 1% (10mg/ml) 5ml syringe ONE; +LISI10TA4 PO; -albumin (human) 25% 100 ML IV solution IV ONE; -calcium chloride 100 MG/1 ML inj IV ONE; -heparin 10,000 units/1 ML INJ ONE; -magnesium sulf 1 GM/2 ML ONE; -methylPREDNISolone sod. succ. 500mg inj ONE; -phenylephrine 10mg/ml inj IV ONE; -sodium bicarbonate (8.4%) 1 mEq/ml syringe ONE
[2017-06-18 18:28] LABS: BASOPHILS # (AUTO) 0.3 X10'3 (0-0.2); BASOPHILS % (AUTO) 1.8 % (0-1); EOSINOPHILS % (AUTO) 0 % (0-6); HEMATOCRIT 34.5 % (42.0-52.0); HEMOGLOBIN 11.4 g/dl (14.0-17.9); LYMPHOCYTES % (AUTO) 14.1 % (21-51); MEAN CORPUSCULAR HEMOGLOBIN 29.2 PG (27.0-31.0); MEAN CORPUSCULAR HGB CONC 33.1 % (33.0-36.5); MEAN CORPUSCULAR VOLUME 88.4 FL (78-98); MEAN PLATELET VOLUME 7.4 FL (7.4-10.4); MONOCYTES % (AUTO) 7.3 % (2-12); NEUTROPHILS # (AUTO) 10.7 X10'3 (1.8-7.7); NEUTROPHILS % (AUTO) 76.8 % (42-75); PLATELET COUNT 685 X10'3 (140-440); RED BLOOD COUNT 3.91 X10'6 (4.70-6.10); RED CELL DISTRIBUTION WIDTH 13.2 % (11.5-14.5)
[2017-06-18 18:37] LABS: PARTIAL THROMBOPLASTIN TIME 31 SECONDS (22-32); PROTHROMBIN TIME 10.4 SECONDS (9.0-12.0)
[2017-06-18] MEDS ORDERED: normal saline 1000ML IV soln IVB ONE (18:45)
[2017-06-18] MEDS ORDERED: albuterol 2.5 MG/3 ML nebule NEB ONE (18:45)
[2017-06-18] MEDS ORDERED: methylPREDNISolone sod succ 125mg/2ml vial IV ONE (18:45)
[2017-06-18] MEDS ORDERED: ipratropium/albuterol 3ml nebule NEB ONE (18:45)
[2017-06-18 19:08] LABS: ALANINE AMINOTRANSFERASE 26 U/L (12-78); ALBUMIN 3.1 G/DL (3.4-5.0); ALBUMIN/GLOBULIN RATIO 0.6 (1.1-1.5); ALKALINE PHOSPHATASE 174 IU/L (46-116); ANION GAP 11 (8-16); ASPARTATE AMINO TRANSFERASE 27 U/L (10-37); BILIRUBIN,TOTAL 0.4 MG/DL (0.1-1.0); BLOOD UREA NITROGEN 11 MG/DL (7-18); BUN/CREATININE RATIO 8.6 (5.4-32.0); CALCIUM 9.1 MG/DL (8.5-10.1); CHLORIDE 97 MMOL/L (99-107); CREATININE 1.28 MG/DL (0.60-1.10); GLUCOSE 123 MG/DL (70-104); POTASSIUM 4.3 MMOL/L (3.5-5.1); SODIUM 134 MMOL/L (135-145); TOTAL CARBON DIOXIDE 25.8 MMOL/L (24-32); eGFR 57 ML/MIN
[2017-06-18] MEDS ORDERED: levoFLOXACIN-Levaquin 500mg/D5 100 ML IV ONE (19:35)
[2017-06-18] MEDS ORDERED: FLUT1BLS3 (20:33)
[2017-06-18] MEDS ORDERED: OMEP20CA10 PO (20:35)
[2017-06-18] MEDS ORDERED: PRAV40TA3 PO (20:36)
[2017-06-18 20:37] LABS: CLARITY,URINE CLEAR (Clear); COLOR,URINE YELLOW (Yellow); GLUCOSE, URINE NEGATIVE (Neg); KETONES,URINE TRACE mg/dl (Neg); LEUKOCYTE ESTERASE ,URINE NEGATIVE (Neg); NITRITES, URINE NEGATIVE (Neg); OCCULT BLOOD,URINE TRACE-INTACT (Neg); PROTEIN,URINE 30 mg/dl (Neg); UA COLLECTION TYPE URINAL; UROBILINOGEN,URINE 0.2 E.U/dL (0.2-1.0)
[2017-06-18] MEDS ORDERED: DOCU-28 PO (20:37)
[2017-06-18] MEDS ORDERED: METO25TA6 PO (20:39)
[2017-06-18] MEDS ORDERED: normal saline 1000ml 1,000 ML IVB ONE (21:42)
[2017-06-18] MEDS ORDERED: bisacodyl 10mg suppository rectal RC PRN (21:45)
[2017-06-18] MEDS ORDERED: diphenhydrAMINE 25mg capsule PO PRN (21:45)
[2017-06-18] MEDS ORDERED: acetaminophen 650mg rectal suppository RC PRN (21:45)
[2017-06-18] MEDS ORDERED: HYDROmorphone inj. 0.5 MG/0.5 ML DISP.SYRIN IV PRN ×2 (21:45)
[2017-06-18] MEDS ORDERED: metoclopramide 5 mg/ml inj IV PRN (21:45)
[2017-06-18] MEDS ORDERED: mag hydrox/Alum hydrox/simeth 30ml oral suspension PO PRN (21:45)
[2017-06-18] MEDS ORDERED: morphine 2 MG/ML inj. syringe IV PRN ×2 (21:45)
[2017-06-18] MEDS ORDERED: ondansetron/PF 4mg/2ml inj IV PRN (21:45)
[2017-06-18] MEDS ORDERED: diphenhydrAMINE 50 mg/ml inj IV PRN (21:45)
[2017-06-18] MEDS ORDERED: acetaminophen 325mg tablet PO PRN ×2 (21:45)
[2017-06-18] MEDS ORDERED: HYDROcodone/acetaminophen 10/325mg tab PO PRN (21:45)
[2017-06-18] MEDS ORDERED: non-formulary drug (Albuterol Sulfate (Proair Hfa) 2 PUFFS) IH PRN (21:50)
[2017-06-18] MEDS ORDERED: albuterol 2.5 MG/3 ML nebule NEB PRN (22:00)
[2017-06-18 22:05] LABS: BACTERIA,URINE FEW /HPF (Neg); HYALINE CASTS 0-3 /LPF (NEGATIVE); MUCUS STRANDS MANY /LPF (Neg); RBC,URINE 0-2 /HPF (0-2); SQUAMOUS EPITHELIAL CELL,UR NONE SEEN /LPF (FEW); WBC,URINE 0-4 /HPF (0-4)
[2017-06-18 22:18] LABS: PHOSPHORUS 3.3 MG/DL (2.3-4.5)
[2017-06-18] MEDS: dextrose 5%-1/2 normal saline 1,000 ML IV SCH (22:26)
[2017-06-19] MEDS: methylPREDNISolone sod succ 125mg/2ml vial IV SCH ×3 (00:23→17:13)
[2017-06-19 07:36] LABS: BASOPHILS % (AUTO) 0.3 % (0-1); EOSINOPHILS # (AUTO) 0.1 X10'3 (0-0.9); EOSINOPHILS % (AUTO) 0.9 % (0-6); HEMATOCRIT 29.7 % (42.0-52.0); HEMOGLOBIN 9.9 g/dl (14.0-17.9); LYMPHOCYTES # (AUTO) 1.4 X10'3 (1.1-4.8); LYMPHOCYTES % (AUTO) 18.1 % (21-51); MEAN CORPUSCULAR HGB CONC 33.3 % (33.0-36.5); MEAN CORPUSCULAR VOLUME 89.9 FL (78-98); MONOCYTES # (AUTO) 0.2 X10'3 (0-0.9); NEUTROPHILS % (AUTO) 78.7 % (42-75); PLATELET COUNT 523 X10'3 (140-440); RED BLOOD COUNT 3.31 X10'6 (4.70-6.10); RED CELL DISTRIBUTION WIDTH 14.3 % (11.5-14.5); WHITE BLOOD COUNT 7.6 X10'3 (4.5-11.0)
[2017-06-19 07:55] LABS: ALANINE AMINOTRANSFERASE 21 U/L (12-78); ALBUMIN 2.4 G/DL (3.4-5.0); ALBUMIN/GLOBULIN RATIO 0.6 (1.1-1.5); ALKALINE PHOSPHATASE 136 IU/L (46-116); ANION GAP 8 (8-16); ASPARTATE AMINO TRANSFERASE 21 U/L (10-37); BILIRUBIN,TOTAL 0.3 MG/DL (0.1-1.0); BLOOD UREA NITROGEN 10 MG/DL (7-18); BUN/CREATININE RATIO 10.1 (5.4-32.0); CALCIUM 8.9 MG/DL (8.5-10.1); CHLORIDE 103 MMOL/L (99-107); CREATININE 0.99 MG/DL (0.60-1.10); GLUCOSE 140 MG/DL (70-104); POTASSIUM 4.8 MMOL/L (3.5-5.1); SODIUM 138 MMOL/L (135-145); TOTAL CARBON DIOXIDE 27.1 MMOL/L (24-32); TOTAL PROTEIN 6.7 G/DL (6.4-8.2); eGFR 76 ML/MIN
[2017-06-19] MEDS ORDERED: non-formulary drug (Aspirin (Aspir 81) 1 TAB) PO SCH (08:00)
[2017-06-19] MEDS ORDERED: non-formulary drug (Omeprazole 1 CAP) PO SCH (08:00)
[2017-06-19 10:00] VITALS: BP 135/73
[2017-06-19] MEDS: metoprolol tartrate 25mg tablet PO SCH ×2 (10:21→20:51)
[2017-06-19] MEDS: pantoprazole 40mg Tablet.DR PO SCH (10:22)
[2017-06-19] MEDS: famotidine 20mg tablet PO SCH ×2 (10:22→20:51)
[2017-06-19] MEDS: aspirin 81mg tablet.DR PO SCH (10:22)
[2017-06-19] MEDS: HYDROcodone/acetaminophen 5mg/325mg tablet PO PRN ×2 (10:23→21:02)
[2017-06-19] MEDS: heparin, porcine 5000 units/ml vial SQ SCH ×2 (10:23→20:50)
[2017-06-19] MEDS: dextrose 5%-1/2 normal saline 1,000 ML IV SCH ×3 (10:24→21:01)
[2017-06-19] MEDS: levoFLOXACIN-Levaquin 500mg/D5 100 ML IV SCH (10:24)
[2017-06-19] MEDS ORDERED: ringers solution, lactated 500ml IV solution IV ONE (12:55)
[2017-06-19] MEDS: lactobacillus rhamnosus 10,000 MMU CELLS/CAPSULE PO SCH (17:13)
[2017-06-19 18:00] VITALS: BP 125/65
[2017-06-19] MEDS: ipratropium/albuterol 3ml nebule NEB PRN ×2 (19:26→23:06)
[2017-06-19] MEDS: atorvastatin 20mg tablet PO SCH (20:51)
[2017-06-19] MEDS ORDERED: non-formulary drug (Atorvastatin Calcium* (Lipitor*) 1 TABLET) PO SCH (21:00)
[2017-06-19 22:00] VITALS: BP 117/64
[2017-06-20] MEDS: methylPREDNISolone sod succ 125mg/2ml vial IV SCH ×3 (00:59→16:41)
[2017-06-20 05:34] LABS: BASOPHILS % (AUTO) 0.2 % (0-1); EOSINOPHILS # (AUTO) 0.4 X10'3 (0-0.9); EOSINOPHILS % (AUTO) 1.8 % (0-6); HEMATOCRIT 28.6 % (42.0-52.0); HEMOGLOBIN 9.6 g/dl (14.0-17.9); LYMPHOCYTES # (AUTO) 1.5 X10'3 (1.1-4.8); LYMPHOCYTES % (AUTO) 7.3 % (21-51); MEAN CORPUSCULAR HGB CONC 33.7 % (33.0-36.5); MEAN CORPUSCULAR VOLUME 89.1 FL (78-98); MEAN PLATELET VOLUME 7.1 FL (7.4-10.4); MONOCYTES # (AUTO) 0.4 X10'3 (0-0.9); MONOCYTES % (AUTO) 2.2 % (2-12); NEUTROPHILS # (AUTO) 17.9 X10'3 (1.8-7.7); NEUTROPHILS % (AUTO) 88.5 % (42-75); PLATELET COUNT 492 X10'3 (140-440); RED BLOOD COUNT 3.22 X10'6 (4.70-6.10); RED CELL DISTRIBUTION WIDTH 14.3 % (11.5-14.5); WHITE BLOOD COUNT 20.3 X10'3 (4.5-11.0)
[2017-06-20 05:51] LABS: ALANINE AMINOTRANSFERASE 24 U/L (12-78); ALBUMIN 2.2 G/DL (3.4-5.0); ALBUMIN/GLOBULIN RATIO 0.6 (1.1-1.5); ALKALINE PHOSPHATASE 116 IU/L (46-116); ANION GAP 10 (8-16); ASPARTATE AMINO TRANSFERASE 29 U/L (10-37); BILIRUBIN,TOTAL 0.1 MG/DL (0.1-1.0); BLOOD UREA NITROGEN 13 MG/DL (7-18); BUN/CREATININE RATIO 12.9 (5.4-32.0); CALCIUM 8.7 MG/DL (8.5-10.1); CHLORIDE 104 MMOL/L (99-107); CREATININE 1.01 MG/DL (0.60-1.10); GLUCOSE 145 MG/DL (70-104); SODIUM 141 MMOL/L (135-145); TOTAL CARBON DIOXIDE 27.3 MMOL/L (24-32); TOTAL PROTEIN 6.2 G/DL (6.4-8.2); eGFR 75 ML/MIN
[2017-06-20] MEDS: ipratropium/albuterol 3ml nebule NEB SCH ×5 (07:30→23:06)
[2017-06-20] MEDS: levoFLOXACIN-Levaquin 500mg/D5 100 ML IV SCH (07:34)
[2017-06-20] MEDS: dextrose 5%-1/2 normal saline 1,000 ML IV SCH ×2 (07:34→19:19)
[2017-06-20] MEDS: pantoprazole 40mg Tablet.DR PO SCH (07:35)
[2017-06-20] MEDS: aspirin 81mg tablet.DR PO SCH (07:35)
[2017-06-20] MEDS: famotidine 20mg tablet PO SCH ×2 (07:35→20:23)
[2017-06-20] MEDS: lactobacillus rhamnosus 10,000 MMU CELLS/CAPSULE PO SCH ×2 (07:35→16:40)
[2017-06-20] MEDS: metoprolol tartrate 25mg tablet PO SCH ×2 (07:35→20:23)
[2017-06-20] MEDS: heparin, porcine 5000 units/ml vial SQ SCH ×2 (07:35→20:23)
[2017-06-20 07:57] VITALS: BP 119/61
[2017-06-20 10:30] VITALS: BP 106/59
[2017-06-20] MEDS: HYDROcodone/acetaminophen 5mg/325mg tablet PO PRN ×2 (10:33→16:41)
[2017-06-20 18:00] VITALS: BP 123/58
[2017-06-20] MEDS: atorvastatin 20mg tablet PO SCH (20:23)
[2017-06-20 22:00] VITALS: BP 118/61
[2017-06-21] MEDS: methylPREDNISolone sod succ 125mg/2ml vial IV SCH ×3 (00:21→17:05)
[2017-06-21] MEDS: ipratropium/albuterol 3ml nebule NEB SCH ×6 (03:38→23:26)
[2017-06-21] MEDS: dextrose 5%-1/2 normal saline 1,000 ML IV SCH ×2 (05:11→19:43)
[2017-06-21 06:00] VITALS: BP 140/73
[2017-06-21 06:25] LABS: BASOPHILS % (AUTO) 0 % (0-1); EOSINOPHILS # (AUTO) 0.4 X10'3 (0-0.9); EOSINOPHILS % (AUTO) 1.7 % (0-6); HEMOGLOBIN 9.9 g/dl (14.0-17.9); LYMPHOCYTES # (AUTO) 1.1 X10'3 (1.1-4.8); LYMPHOCYTES % (AUTO) 4.8 % (21-51); MEAN CORPUSCULAR HEMOGLOBIN 30.4 PG (27.0-31.0); MEAN CORPUSCULAR HGB CONC 34.1 % (33.0-36.5); MEAN CORPUSCULAR VOLUME 89.1 FL (78-98); MEAN PLATELET VOLUME 7.2 FL (7.4-10.4); MONOCYTES # (AUTO) 0.3 X10'3 (0-0.9); MONOCYTES % (AUTO) 1.4 % (2-12); NEUTROPHILS # (AUTO) 21.4 X10'3 (1.8-7.7); NEUTROPHILS % (AUTO) 92.1 % (42-75); PLATELET COUNT 494 X10'3 (140-440); RED BLOOD COUNT 3.25 X10'6 (4.70-6.10); RED CELL DISTRIBUTION WIDTH 14.1 % (11.5-14.5); WHITE BLOOD COUNT 23.2 X10'3 (4.5-11.0)
[2017-06-21 07:18] LABS: ALANINE AMINOTRANSFERASE 45 U/L (12-78); ALBUMIN 2.2 G/DL (3.4-5.0); ALBUMIN/GLOBULIN RATIO 0.6 (1.1-1.5); ALKALINE PHOSPHATASE 110 IU/L (46-116); ANION GAP 9 (8-16); ASPARTATE AMINO TRANSFERASE 36 U/L (10-37); BILIRUBIN,TOTAL 0.2 MG/DL (0.1-1.0); BLOOD UREA NITROGEN 15 MG/DL (7-18); BUN/CREATININE RATIO 16.1 (5.4-32.0); CALCIUM 8.5 MG/DL (8.5-10.1); CHLORIDE 104 MMOL/L (99-107); CREATININE 0.93 MG/DL (0.60-1.10); GLUCOSE 161 MG/DL (70-104); POTASSIUM 3.8 MMOL/L (3.5-5.1); SODIUM 141 MMOL/L (135-145); TOTAL PROTEIN 5.9 G/DL (6.4-8.2); eGFR 82 ML/MIN
[2017-06-21] MEDS: metoprolol tartrate 25mg tablet PO SCH ×2 (07:48→19:44)
[2017-06-21] MEDS: aspirin 81mg tablet.DR PO SCH (07:48)
[2017-06-21] MEDS: famotidine 20mg tablet PO SCH ×2 (07:48→19:44)
[2017-06-21] MEDS: levoFLOXACIN-Levaquin 500mg/D5 100 ML IV SCH (07:48)
[2017-06-21] MEDS: pantoprazole 40mg Tablet.DR PO SCH (07:48)
[2017-06-21] MEDS: heparin, porcine 5000 units/ml vial SQ SCH ×2 (07:49→19:44)
[2017-06-21] MEDS: lactobacillus rhamnosus 10,000 MMU CELLS/CAPSULE PO SCH ×2 (07:49→17:05)
[2017-06-21] MEDS: HYDROcodone/acetaminophen 5mg/325mg tablet PO PRN ×3 (11:14→21:31)
[2017-06-21] MEDS ORDERED: vancomycin inj 1,250 MG in normal saline 250ml IV soln 250 ML IV ONE (12:05)
[2017-06-21] MEDS ORDERED: iohexol 350MG/ML 100ml bottle IV ONE (12:59)
[2017-06-21 13:10] VITALS: BP 130/71
[2017-06-21] MEDS: vancomycin/NS 1 GM ADD-VANTAGE 250 ML IV SCH (13:38)
[2017-06-21 18:00] VITALS: BP 150/75
[2017-06-21] MEDS: atorvastatin 20mg tablet PO SCH (19:44)
[2017-06-21] MEDS: temazepam 15mg capsule PO PRN (21:31)
[2017-06-21 22:21] VITALS: BP 138/71
[2017-06-22] MEDS: vancomycin/NS 1 GM ADD-VANTAGE 250 ML IV SCH ×2 (01:22→13:50)
[2017-06-22] MEDS: methylPREDNISolone sod succ 125mg/2ml vial IV SCH ×2 (01:22→09:48)
[2017-06-22] MEDS: magnesium hydroxide 30ml (MOM) UD suspension PO PRN ×2 (03:02→20:17)
[2017-06-22] MEDS: ipratropium/albuterol 3ml nebule NEB SCH ×3 (03:15→11:18)
[2017-06-22] MEDS: dextrose 5%-1/2 normal saline 1,000 ML IV SCH (05:09)
[2017-06-22 05:19] LABS: BASOPHILS % (AUTO) 0 % (0-1); EOSINOPHILS # (AUTO) 0.4 X10'3 (0-0.9); EOSINOPHILS % (AUTO) 2.1 % (0-6); HEMATOCRIT 29.9 % (42.0-52.0); HEMOGLOBIN 10.2 g/dl (14.0-17.9); LYMPHOCYTES # (AUTO) 1.1 X10'3 (1.1-4.8); LYMPHOCYTES % (AUTO) 5.9 % (21-51); MEAN CORPUSCULAR HEMOGLOBIN 29.9 PG (27.0-31.0); MEAN CORPUSCULAR HGB CONC 34.2 % (33.0-36.5); MEAN CORPUSCULAR VOLUME 87.4 FL (78-98); MEAN PLATELET VOLUME 6.9 FL (7.4-10.4); MONOCYTES # (AUTO) 0.3 X10'3 (0-0.9); MONOCYTES % (AUTO) 1.6 % (2-12); NEUTROPHILS # (AUTO) 17.2 X10'3 (1.8-7.7); NEUTROPHILS % (AUTO) 90.4 % (42-75); PLATELET COUNT 504 X10'3 (140-440); RED BLOOD COUNT 3.42 X10'6 (4.70-6.10); RED CELL DISTRIBUTION WIDTH 14.4 % (11.5-14.5)
[2017-06-22 05:48] LABS: ALANINE AMINOTRANSFERASE 55 U/L (12-78); ALBUMIN 2.1 G/DL (3.4-5.0); ALBUMIN/GLOBULIN RATIO 0.6 (1.1-1.5); ALKALINE PHOSPHATASE 110 IU/L (46-116); ANION GAP 8 (8-16); ASPARTATE AMINO TRANSFERASE 33 U/L (10-37); BILIRUBIN,TOTAL 0.2 MG/DL (0.1-1.0); BLOOD UREA NITROGEN 15 MG/DL (7-18); BUN/CREATININE RATIO 15.2 (5.4-32.0); CALCIUM 8.4 MG/DL (8.5-10.1); CHLORIDE 105 MMOL/L (99-107); CREATININE 0.99 MG/DL (0.60-1.10); GLUCOSE 156 MG/DL (70-104); POTASSIUM 3.9 MMOL/L (3.5-5.1); SODIUM 141 MMOL/L (135-145); TOTAL CARBON DIOXIDE 28.3 MMOL/L (24-32); TOTAL PROTEIN 5.8 G/DL (6.4-8.2); eGFR 76 ML/MIN
[2017-06-22 06:00] VITALS: BP 133/81
[2017-06-22] MEDS: aspirin 81mg tablet.DR PO SCH (09:47)
[2017-06-22] MEDS: lactobacillus rhamnosus 10,000 MMU CELLS/CAPSULE PO SCH ×2 (09:47→17:39)
[2017-06-22] MEDS: famotidine 20mg tablet PO SCH ×2 (09:47→20:18)
[2017-06-22] MEDS: metoprolol tartrate 25mg tablet PO SCH ×2 (09:48→20:18)
[2017-06-22] MEDS: levoFLOXACIN-Levaquin 500mg/D5 100 ML IV SCH (09:49)
[2017-06-22] MEDS: heparin, porcine 5000 units/ml vial SQ SCH ×2 (09:49→20:18)
[2017-06-22 10:00] VITALS: BP 136/79
[2017-06-22] MEDS: pantoprazole 40mg Tablet.DR PO SCH (13:50)
[2017-06-22] MEDS: HYDROcodone/acetaminophen 5mg/325mg tablet PO PRN (13:54)
[2017-06-22 18:45] VITALS: BP 147/78
[2017-06-22] MEDS: atorvastatin 20mg tablet PO SCH (20:18)
[2017-06-22] MEDS: temazepam 15mg capsule PO PRN (20:18)
[2017-06-22 20:22] VITALS: BP 150/70
[2017-06-22 22:00] VITALS: BP 130/77
[2017-06-23] MEDS: vancomycin/NS 1 GM ADD-VANTAGE 250 ML IV SCH (00:29)
[2017-06-23] MEDS ORDERED: VANCOMYCIN LEVEL IV ONE (00:30)
[2017-06-23 01:14] LABS: BASOPHILS % (AUTO) 0.2 % (0-1); EOSINOPHILS % (AUTO) 0.1 % (0-6); HEMATOCRIT 29.7 % (42.0-52.0); HEMOGLOBIN 10.1 g/dl (14.0-17.9); LYMPHOCYTES # (AUTO) 2.7 X10'3 (1.1-4.8); LYMPHOCYTES % (AUTO) 13.2 % (21-51); MEAN CORPUSCULAR HEMOGLOBIN 29.6 PG (27.0-31.0); MEAN CORPUSCULAR HGB CONC 33.8 % (33.0-36.5); MEAN CORPUSCULAR VOLUME 87.4 FL (78-98); MEAN PLATELET VOLUME 7.5 FL (7.4-10.4); MONOCYTES # (AUTO) 0.5 X10'3 (0-0.9); MONOCYTES % (AUTO) 2.3 % (2-12); NEUTROPHILS # (AUTO) 17.1 X10'3 (1.8-7.7); NEUTROPHILS % (AUTO) 84.2 % (42-75); PLATELET COUNT 510 X10'3 (140-440); RED CELL DISTRIBUTION WIDTH 13.6 % (11.5-14.5); WHITE BLOOD COUNT 20.3 X10'3 (4.5-11.0)
[2017-06-23 01:35] LABS: ALANINE AMINOTRANSFERASE 52 U/L (12-78); ALBUMIN 2.1 G/DL (3.4-5.0); ALBUMIN/GLOBULIN RATIO 0.6 (1.1-1.5); ALKALINE PHOSPHATASE 108 IU/L (46-116); ANION GAP 5 (8-16); ASPARTATE AMINO TRANSFERASE 24 U/L (10-37); BILIRUBIN,TOTAL 0.2 MG/DL (0.1-1.0); BLOOD UREA NITROGEN 20 MG/DL (7-18); BUN/CREATININE RATIO 17.7 (5.4-32.0); CALCIUM 8.2 MG/DL (8.5-10.1); CHLORIDE 105 MMOL/L (99-107); CREATININE 1.13 MG/DL (0.60-1.10); GLUCOSE 112 MG/DL (70-104); POTASSIUM 4.2 MMOL/L (3.5-5.1); SODIUM 140 MMOL/L (135-145); TOTAL CARBON DIOXIDE 30.4 MMOL/L (24-32); TOTAL PROTEIN 5.6 G/DL (6.4-8.2); VANCOMYCIN,TROUGH 15.4 UG/ML (6.0-14.0); eGFR 66 ML/MIN
[2017-06-23 06:00] VITALS: BP 146/82
[2017-06-23] MEDS ORDERED: predniSONE 20 mg tablet PO SCH (08:00)
[2017-06-23] MEDS: metoprolol tartrate 25mg tablet PO SCH (08:28)
[2017-06-23] MEDS: lactobacillus rhamnosus 10,000 MMU CELLS/CAPSULE PO SCH (08:28)
[2017-06-23] MEDS: aspirin 81mg tablet.DR PO SCH (08:29)
[2017-06-23] MEDS: pantoprazole 40mg Tablet.DR PO SCH (08:29)
[2017-06-23] MEDS: famotidine 20mg tablet PO SCH (08:29)
[2017-06-23] MEDS: levoFLOXACIN-Levaquin 500mg/D5 100 ML IV SCH (08:30)
[2017-06-23] MEDS: heparin, porcine 5000 units/ml vial SQ SCH (08:30)
[2017-06-23 10:00] VITALS: BP 100/57
[2017-06-23] MEDS ORDERED: GUAI600T45 PO (10:58)
[2017-06-23] MEDS ORDERED: PRED20TA PO (10:58)
[2017-06-23] MEDS ORDERED: LEVO750T21 PO (10:58)
== END 2017-06-23 14:10 | disposition home or self-care (01) | DRG 190 ==
LOC: ER 16:44 → ED HOLD 21:42 → ORTHO 4S 06-19 09:58
PROVIDERS: ADMIT Family Medicine; ATTEND Family Medicine
PROC: B32T1ZZ Computerized Tomography (CT Scan) of Left Pulmonary Artery using Low Osmolar Contrast (ICD-10-PCS; principal; 2017-06-21)
PROC: B32S1ZZ Computerized Tomography (CT Scan) of Right Pulmonary Artery using Low Osmolar Contrast (ICD-10-PCS; 2017-06-21)
DX: J44.1 Chronic obstructive pulmonary disease with (acute) exacerbation (principal); J18.9 Pneumonia, unspecified organism; J44.0 Chronic obstructive pulmonary disease with (acute) lower respiratory infection; E86.0 Dehydration; I25.10 Atherosclerotic heart disease of native coronary artery without angina pectoris; D64.9 Anemia, unspecified; D72.829 Elevated white blood cell count, unspecified; T38.0X5A Adverse effect of glucocorticoids and synthetic analogues, initial encounter; R09.02 Hypoxemia; I25.2 Old myocardial infarction; Z95.1 Presence of aortocoronary bypass graft; Z79.82 Long term (current) use of aspirin; Z79.899 Other long term (current) drug therapy; Y92.89 Other specified places as the place of occurrence of the external cause
CPT/HCPCS: 36415; 71045; 71275; 80053; 80202; 81001; 83605; 83735; 83880; 84100; 84145; 84484; 85025; 85610; 85730; 87040; 87070; 87502; 87503; 93005; 94640; 94760; 96361; 96365; 96375; 97116; 97161; 97530; 99285; A6255; A6449; J1644; J1956; J2930; J3370; J7030; J7120; J7512; Q9967